=== PATIENT | male | born 1930 | race Hispanic/Latino ===

== ENCOUNTER 2019-01-09 14:17 | Inpatient (IN) | payer MEDICAID, SELFPAY ==
[2019-01-09] MEDS ORDERED: NITROGLYCERIN 1 GM PKT TD ONE (14:43)
[2019-01-09] MEDS ORDERED: FUROSEMIDE 40 MG/4 ML VIAL ONE (14:44)
[2019-01-09 15:16] LABS: Absolute Lymphocytes (CBC) 1.2 K/uL (0.7-4.9); Basophils % 1.4 % (0-1.3); Hematocrit 32.6 % (39.6-49.0); Lymphocytes % 17.8 % (15.3-44.8); MPV 10.6 fL (7.6-11.3); RBC Red Blood Cell Count 3.38 M/uL (4.33-5.43)
[2019-01-09 15:40] LABS: Potassium 4.8 mmol/L (3.5-5.1); Troponin (Emerg Dept Use Only) 0.06 ng/mL (0.0-0.045)
--- NOTE | 2019-01-09 15:46 | RAD REPORT ---
EXAM DESCRIPTION: RAD - Chest Single View - 01/09/2019 3:40 pm CLINICAL HISTORY: DYSPNEA Chest pain. COMPARISON: <Comparisons> FINDINGS: Portable technique limits examination quality. Small bilateral pleural effusions are suspected with mild pulmonary edema. The heart is significantly prominent in size. No displaced fractures.Aortic atherosclerosis. IMPRESSION: Mild CHF versus volume overload pattern.
--- NOTE | 2019-01-09 16:13 | EDPHYS ---
Physician Documentation [facility] Name: Beronica Reyes Age: 88 yrs Sex: Male : 1930 Arrival Date: 01/09/2019 Time: 14:20 Bed 19 Private MD: Unknown, Unknown ED Physician Anthony Hoang HPI: 01/09 15:06 This 88 yrs old Male presents to ER via Ambulatory with complaints of rn Breathing Difficulty, Chest Congestion. 15:06 The patient has shortness of breath at rest, with light activity. Onset: The rn symptoms/episode began/occurred at an unknown time. The patient's shortness of breath is aggravated by exertion, light activity, supine position, talking, walking. Severity of symptoms: At their worst the symptoms were moderate in the emergency department the symptoms are unchanged. The patient has experienced similar episodes in the past. Reports dyspnea on exertion, dry cough, no fever, + swelling of legs, most of care in [place], and only takes diuretics as needed. Reports chest pain as well. . Historical: - Allergies: 14:28 No Known Allergies; aj1 - Home Meds: 14:28 blood pressure medicine [Active]; aj1 - PMHx: 14:28 Hypertension; aj1 - Immunization history:: Flu vaccine is not up to date. - Social history:: Smoking status: Patient/guardian denies using tobacco. - Ebola Screening: : Patient denies travel to an Ebola-affected area in the 21 days before illness onset. - Family history:: not pertinent. - Hospitalizations: : No recent hospitalization is reported. ROS: 15:06 Constitutional: Negative for fever, chills, and weight loss, Eyes: Negative for injury, rn pain, redness, and discharge, ENT: Negative for injury, pain, and discharge, Neck: Negative for injury, pain, and swelling, Cardiovascular: Negative for chest pain, palpitations, + edema Respiratory: + sob and cough Abdomen/GI: Negative for abdominal pain, nausea, vomiting, diarrhea, and constipation, MS/Extremity: Negative for injury and deformity, Skin: Negative for injury, rash, and discoloration, Neuro: Negative for headache, weakness, numbness, tingling, and seizure. Exam: 15:06 Constitutional: This is a well developed, well nourished patient who is awake, alert, rn moderate respiratory distress Head/Face: Normocephalic, atraumatic. Eyes: Pupils equal round and reactive to light, extra-ocular motions intact. Lids and lashes normal. Conjunctiva and sclera are non-icteric and not injected. Cornea within normal limits. Periorbital areas with no swelling, redness, or edema. Cardiovascular: Regular rate and rhythm. No pulse deficits. Respiratory: Diminished bilateral bases, no wheezing or retractions. Abdomen/GI: soft, non-tender MS/ Extremity: 2+ pitting edema bilateral lower ext Neuro: Awake and alert, GCS 15, oriented to person, place, time, and situation. Cranial nerves II-XII grossly intact. Motor strength 5/5 in all extremities. Sensory grossly intact. Vital Signs: 14:28 BP 205 / 127; Pulse 78; Resp 18; Temp 97.6; Pulse Ox 98% on R/A; aj1 14:50 BP 183 / 103 LA Sitting (auto/reg); Pulse 75; Resp 22; Pulse Ox 98% on R/A; jp3 15:17 BP 192 / 125; Pulse 71; Resp 30; Pulse Ox 99% ; em 15:51 BP 190 / 103; Pulse 62; Resp 28; Pulse Ox 100% on R/A; Pain 0/10; em 16:15 BP 176 / 123; Pulse 67; Resp 28; Pulse Ox 9% on 21% BiPAP; Pain 0/10; em 16:47 BP 191 / 111; Pulse 68; Resp 20; Pulse Ox 99% on 21% BiPAP; em 17:25 BP 187 / 96; Pulse 62; Resp 24; Pulse Ox 100% on 21% BiPAP; Pain 0/10; em 18:00 BP 190 / 100; Pulse 71; Resp 26; Pulse Ox 99% on R/A; em 18:15 BP 175 / 78; Pulse 71; Resp 22; Pulse Ox 99% on R/A; Pain 0/10; em 18:35 BP 198 / 91; Pulse 69; Resp 24; Pulse Ox 98% on R/A; Pain 0/10; em 19:43 BP 207 / 108; Pulse 75; Resp 20; Temp 97.9; Pulse Ox 99% ; rr5 19:55 BP 195 / 120; Pulse 82; Resp 21; Pulse Ox 99% ; rr5 20:00 BP 190 / 120 RA (man/); rr5 20:30 BP 189 / 105; Pulse 70; Resp 20; Pulse Ox 99% ; rr5 20:58 BP 189 / 103; Pulse 62; Resp 19; Pulse Ox 98% ; rr5 21:04 BP 180 / 108; Pulse 62; Resp 21; Temp 97.9; Pulse Ox 98% ; rr5 MDM: 14:31 Patient medically screened. rn 16:09 Differential diagnosis: CHF exacerbation, Myocardial Infarction pneumonia, Pneumothorax rn pulmonary edema. Data reviewed: vital signs, nurses notes, lab test result(s), EKG, radiologic studies, plain films, and as a result, I will admit patient. Counseling: I had a detailed discussion with the patient and/or guardian regarding: the historical points, exam findings, and any diagnostic results supporting the discharge/admit diagnosis, lab results, radiology results, the need for further work-up and treatment in the hospital. Response to treatment: the patient's symptoms have mildly improved after treatment, and as a result, I will admit patient. Admission orders: after a detailed discussion of the patient's condition and case, the admit orders are written by me. 01/09 14:39 Order name: Blood Culture Adult (2) 01/09 14:39 Order name: BMP; Complete Time: 15:51 rn 01/09 14:39 Order name: CBC with Diff; Complete Time: 15:47 01/09 14:39 Order name: NT PRO-BNP; Complete Time: 15:51 01/09 14:39 Order name: Troponin (emerg Dept Use Only); Complete Time: 15:51 rn 01/09 17:14 Order name: Urine Dipstick--Ancillary (enter results) eb 01/09 14:39 Order name: XRAY CXR (1 view); Complete Time: 15:47 rn 01/09 16:13 Order name: BIPAP rn 01/09 20:18 Order name: Urine Dipstick-Ancillary EDMS 01/09 14:39 Order name: EKG; Complete Time: 14:40 rn 01/09 14:39 Order name: Cardiac monitoring; Complete Time: 14:51 rn 01/09 14:39 Order name: EKG - Nurse/Tech; Complete Time: 14:51 rn 01/09 14:39 Order name: IV Saline Lock; Complete Time: 15:20 rn 01/09 14:39 Order name: Labs collected and sent; Complete Time: 15:20 rn 01/09 14:39 Order name: O2 Per Protocol; Complete Time: 14:51 rn 01/09 14:39 Order name: O2 Sat Monitoring; Complete Time: 14:51 rn Administered Medications: 14:55 Drug: Lasix 40 mg Route: IVP; Site: right forearm; ss 16:30 Follow up: Response: No adverse reaction em 15:00 Drug: Nitro-Bid Ointment 2 % 1 inches Route: Transdermal; Site: anterior chest wall; em 16:30 Follow up: Response: No adverse reaction; Blood pressure is unchanged em 16:25 Drug: Nitroglycerin 0.4 mg Route: Sublingual; em 16:52 Follow up: Response: No adverse reaction; Blood pressure is lowered em 17:06 Drug: hydrALAZINE 10 mg Route: IV; Rate: calculated rate; Site: right forearm; ss 17:40 Follow up: Response: No adverse reaction; Blood pressure is lowered ss 17:40 Follow up: Response: No adverse reaction ss 19:00 Follow up: Response: No adverse reaction; IV Status: Completed infusion rr5 18:02 Drug: hydrALAZINE 10 mg Route: IV; Rate: calculated rate; Site: right forearm; ss 19:00 Follow up: IV Status: Completed infusion rr5 19:14 Drug: cloNIDine 0.1 mg {Note: bp 199/94.} Route: PO; rr5 20:15 Follow up: Response: No adverse reaction rr5 20:28 Drug: Metoprolol 50 mg {Note: bp 190/120.} Route: PO; rr5 21:13 Follow up: Response: No adverse reaction rr5 21:10 Drug: Losartan 50 mg Route: PO; rr5 21:13 Follow up: Response: Other; given upon admission. rr5 Disposition: 01/09/19 16:12 Hospitalization ordered by Fidelia Prakash for Inpatient Admission. Preliminary diagnosis are Dyspnea, unspecified, Unspecified combined systolic (congestive) and diastolic (congestive) heart failure, Chest pain, unspecified. - Bed requested for Telemetry/MedSurg (Inpatient). - Status is Inpatient Admission. rr5 - Condition is Stable. - Problem is new. - Symptoms have improved. UTI on Admission? No Signatures: Dispatcher [employer] EDPretty Castillo RN RN aj1 Juan Luis Alex, AG EQUIPMENT FIELD SERVICE TECHNICIAN AG EQUIPMENT FIELD SERVICE TECHNICIAN em Anthony Hoang MD MD rn Smirch, Shelby, PAM RN ss Laith Alves, RN RN ja1 Madi Cardenas, PAM RN rr5 Corrections: (The following items were deleted from the chart) 16:55 16:12 Hospitalization Ordered by Fidelia Prakash MD for Inpatient Admission. Preliminary ja1 diagnosis is Dyspnea, unspecified; Unspecified combined systolic (congestive) and diastolic (congestive) heart failure; Chest pain, unspecified. Bed requested for Telemetry/MedSurg (Inpatient). Status is Inpatient Admission. Condition is Stable. Problem is new. Symptoms have improved. UTI on Admission? No. rn 21:29 16:55 01/09/2019 16:12 Hospitalization Ordered by Fidelia Prakash MD for Inpatient rr5 Admission. Preliminary diagnosis is Dyspnea, unspecified; Unspecified combined systolic (congestive) and diastolic (congestive) heart failure; Chest pain, unspecified. Bed requested for Telemetry/MedSurg (Inpatient). Status is Inpatient Admission. Condition is Stable. Problem is new. Symptoms have improved. UTI on Admission? No. ja1
--- NOTE | 2019-01-09 16:13 | ER ---
Nurse's Notes [facility] Name: Beronica Reyes Age: 88 yrs Sex: Male : 1930 Arrival Date: 01/09/2019 Time: 14:20 Bed 19 Private MD: Unknown, Unknown Diagnosis: Dyspnea, unspecified;Unspecified combined systolic (congestive) and diastolic (congestive) heart failure;Chest pain, unspecified Presentation: 01/09 14:25 Presenting complaint: states: shortness of breath for the past 3 days. Reports aj1 productive cough ,denies fever. Patient also reports chest pain. Transition of care: patient was not received from another setting of care. Onset of symptoms was January 2019. Risk Assessment: Do you want to hurt yourself or someone else? Patient reports no desire to harm self or others. Initial Sepsis Screen: Does the patient meet any 2 criteria? No. Patient's initial sepsis screen is negative. Does the patient have a suspected source of infection? No. Patient's initial sepsis screen is negative. Care prior to arrival: None. 14:25 Method Of Arrival: Ambulatory aj1 14:25 Acuity: SALO 2 aj1 Triage Assessment: 14:28 General: Appears in no apparent distress. comfortable, Behavior is calm, cooperative, aj1 appropriate for age. Pain: Complains of pain in chest. Neuro: Level of Consciousness is awake, alert, obeys commands, Oriented to person, place, time, situation. Cardiovascular: Patient's skin is warm and dry. Respiratory: Reports shortness of breath at rest Airway is patent Respiratory effort is even, unlabored, Respiratory pattern is regular, symmetrical, Onset: The symptoms/episode began/occurred 3 days ago, the patient has moderate shortness of breath. Historical: - Allergies: 14:28 No Known Allergies; aj1 - Home Meds: 14:28 blood pressure medicine [Active]; aj1 - PMHx: 14:28 Hypertension; aj1 - Immunization history:: Flu vaccine is not up to date. - Social history:: Smoking status: Patient/guardian denies using tobacco. - Ebola Screening: : Patient denies travel to an Ebola-affected area in the 21 days before illness onset. - Family history:: not pertinent. - Hospitalizations: : No recent hospitalization is reported. Screenin:45 Abuse screen: Denies threats or abuse. Nutritional screening: No deficits noted. em Tuberculosis screening: No symptoms or risk factors identified. Fall Risk None identified. Assessment: 14:45 General: Appears uncomfortable, Behavior is cooperative, Denies fever. Pain: Complains em of pain in chest. Neuro: Level of Consciousness is awake, alert, obeys commands, Oriented to person, place, time, situation, Appropriate for age. Cardiovascular: Reports chest pain, shortness of breath, Heart tones S1 S2 present Capillary refill < 3 seconds Patient's skin is warm and dry. Rhythm is sinus rhythm. Respiratory: Airway is patent Respiratory effort is even, unlabored, Respiratory pattern is regular, symmetrical, Breath sounds are clear bilaterally. Derm: Skin is intact, is healthy with good turgor, Skin is pink, warm \T\ dry. Musculoskeletal: Capillary refill < 3 seconds, Range of motion: intact in all extremities. 14:50 General: The previous assessment is accurate, call light remains within reach. ss 15:46 Reassessment: Patient appears in no apparent distress at this time. Patient and/or em family updated on plan of care and expected duration. Pain level reassessed. reports chest pain is gone, BP still elevated, will continue to monitor Patient denies pain at this time. Patient states feeling better. Patient states symptoms have improved. 16:20 Reassessment: Patient appears in no apparent distress at this time. Patient and/or em family updated on plan of care and expected duration. Pain level reassessed. RT at bedside, placed on BIPAP on 21% O2. 16:56 Reassessment: Dr. Prakash at bedside, received verbal order for hydralazine 10 mg IVP x 1.em 17:26 Reassessment: Patient appears in no apparent distress at this time. Patient and/or em family updated on plan of care and expected duration. Pain level reassessed. BP improved, will continue to monitor. 17:46 Reassessment: spoke with Dr. Prakash over phone, pt reports BIPAP making him feel like he em can't breathe, received order to D/C BIPAP, also reported VS to Dr. Prakash, received new verbal orders, hydralazine 10 mg IVP x 1. 18:35 Reassessment: Patient appears in no apparent distress at this time. Patient and/or em family updated on plan of care and expected duration. Pain level reassessed. Patient denies pain at this time. Patient states feeling better. 18:45 Reassessment: ambulated to restroom, reports BM, tolerated well. em 19:04 Reassessment: Dr. Prakash at bedside, given verbal order for clonidine 0.1 mg PO x 1. em 19:33 General: Appears in no apparent distress. comfortable, Behavior is calm, cooperative, rr5 appropriate for age. Pain: Denies pain. Neuro: Level of Consciousness is awake, alert, obeys commands, Oriented to person, place, time. Cardiovascular: Capillary refill < 3 seconds Patient's skin is warm and dry. Respiratory: Airway is patent Respiratory effort is even, unlabored, Respiratory pattern is regular, symmetrical. GI: No signs and/or symptoms were reported involving the gastrointestinal system. : No signs and/or symptoms were reported regarding the genitourinary system. EENT: No signs and/or symptoms were reported regarding the EENT system. Derm: Skin is intact, Skin is pink, warm \T\ dry. Musculoskeletal: Circulation, motion, and sensation intact. Capillary refill < 3 seconds. 19:33 Musculoskeletal: Swelling present in right leg and left leg. rr5 19:55 Reassessment: informed dr. phelps thru voice mail box for the BP of 195/120mmHg. rr5 20:00 Reassessment: dr. phelps responded thru phone with order made to do manual BP. BP is rr5 190/120 (manual) with telephone order of metoprolol 50 mg tablet now. then check the BP again after. BP parameters must be systolic BP 180 and below. 21:05 Reassessment: Patient appears in no apparent distress at this time. Patient and/or rr5 family updated on plan of care and expected duration. Pain level reassessed. Patient is alert, oriented x 3, equal unlabored respirations, skin warm/dry/pink. dr phelps came assess the patient and with order made to give losartan 50mg tablet now. patient can go up. Vital Signs: 14:28 BP 205 / 127; Pulse 78; Resp 18; Temp 97.6; Pulse Ox 98% on R/A; aj1 14:50 BP 183 / 103 LA Sitting (auto/reg); Pulse 75; Resp 22; Pulse Ox 98% on R/A; jp3 15:17 BP 192 / 125; Pulse 71; Resp 30; Pulse Ox 99% ; em 15:51 BP 190 / 103; Pulse 62; Resp 28; Pulse Ox 100% on R/A; Pain 0/10; em 16:15 BP 176 / 123; Pulse 67; Resp 28; Pulse Ox 9% on 21% BiPAP; Pain 0/10; em 16:47 BP 191 / 111; Pulse 68; Resp 20; Pulse Ox 99% on 21% BiPAP; em 17:25 BP 187 / 96; Pulse 62; Resp 24; Pulse Ox 100% on 21% BiPAP; Pain 0/10; em 18:00 BP 190 / 100; Pulse 71; Resp 26; Pulse Ox 99% on R/A; em 18:15 BP 175 / 78; Pulse 71; Resp 22; Pulse Ox 99% on R/A; Pain 0/10; em 18:35 BP 198 / 91; Pulse 69; Resp 24; Pulse Ox 98% on R/A; Pain 0/10; em 19:43 BP 207 / 108; Pulse 75; Resp 20; Temp 97.9; Pulse Ox 99% ; rr5 19:55 BP 195 / 120; Pulse 82; Resp 21; Pulse Ox 99% ; rr5 20:00 BP 190 / 120 RA (man/); rr5 20:30 BP 189 / 105; Pulse 70; Resp 20; Pulse Ox 99% ; rr5 20:58 BP 189 / 103; Pulse 62; Resp 19; Pulse Ox 98% ; rr5 21:04 BP 180 / 108; Pulse 62; Resp 21; Temp 97.9; Pulse Ox 98% ; rr5 ED Course: 14:20 Patient arrived in ED. ag5 14:21 Unknown, Unknown is Private Physician. ag5 14:27 Triage completed. aj1 14:28 Arm band placed on Patient placed in an exam room. aj1 14:31 Anthony Hoang MD is Attending Physician. rn 14:34 Juan Luis Alex LVN is Primary Nurse. em 14:49 EKG done, by ED staff, reviewed by Anthony Hoang MD. Patient maintains SpO2 saturation jp3 greater than 95% on room air. 14:50 Placed in gown. Bed in low position. Call light in reach. Side rails up X 1. Warm jp3 blanket given. Verbal reassurance given. monitoring tech on. Pulse ox on. NIBP on. 15:00 Inserted saline lock: 20 gauge in right forearm, using aseptic technique. Blood em collected. 15:00 Initial lab(s) drawn, by me, sent to lab. First set of blood cultures drawn by me. em 15:41 XRAY CXR (1 view) In Process Unspecified. EDMS 16:11 Fidelia Prakash MD is Hospitalizing Provider. rn 17:10 Urine collected: clean catch specimen, clear. em 21:08 No provider procedures requiring assistance completed. Patient admitted, IV remains in rr5 place. intact, No redness/swelling at site. Administered Medications: 14:55 Drug: Lasix 40 mg Route: IVP; Site: right forearm; ss 16:30 Follow up: Response: No adverse reaction em 15:00 Drug: Nitro-Bid Ointment 2 % 1 inches Route: Transdermal; Site: anterior chest wall; em 16:30 Follow up: Response: No adverse reaction; Blood pressure is unchanged em 16:25 Drug: Nitroglycerin 0.4 mg Route: Sublingual; em 16:52 Follow up: Response: No adverse reaction; Blood pressure is lowered em 17:06 Drug: hydrALAZINE 10 mg Route: IV; Rate: calculated rate; Site: right forearm; ss 17:40 Follow up: Response: No adverse reaction; Blood pressure is lowered ss 17:40 Follow up: Response: No adverse reaction ss 19:00 Follow up: Response: No adverse reaction; IV Status: Completed infusion rr5 18:02 Drug: hydrALAZINE 10 mg Route: IV; Rate: calculated rate; Site: right forearm; ss 19:00 Follow up: IV Status: Completed infusion rr5 19:14 Drug: cloNIDine 0.1 mg {Note: bp 199/94.} Route: PO; rr5 20:15 Follow up: Response: No adverse reaction rr5 20:28 Drug: Metoprolol 50 mg {Note: bp 190/120.} Route: PO; rr5 21:13 Follow up: Response: No adverse reaction rr5 21:10 Drug: Losartan 50 mg Route: PO; rr5 21:13 Follow up: Response: Other; given upon admission. rr5 Intake: Outcome: 16:12 Decision to Hospitalize by Provider. rn 21:08 Admitted to Tele accompanied by tech, via stretcher, room 404, with chart, Report rr5 called to hernan 21:08 Condition: stable 21:08 Instructed on the need for admit. 21:29 Patient left the ED. rr5 Signatures: Dispatcher [employer] Pretty Peguero, RN RN aj1 Juan Luis Alex, FACILITY SECURITY OFFICER FACILITY SECURITY OFFICER em Anthony Hoang MD MD rn Smirch, Shelby, RN RN ss Pisarski, Jacob jp3 Madi Cardenas RN RN rr5 Ginna Cotton ag5 Corrections: (The following items were deleted from the chart) 14:30 14:25 Acuity: SALO 3 aj1 aj1 18:59 16:47 BP 191 / 111; Pulse 68bpm; Resp 20bpm; Pulse Ox 99% RA; em em
[2019-01-09] MEDS ORDERED: NITROGLYCERIN 0.4 MG/TAB SL ONE (16:19)
[2019-01-09] MEDS ORDERED: HYDRALAZINE HCL 20 MG/ML VIAL ONE (17:00)
--- NOTE | 2019-01-09 17:38 | EKG ---
Test Date: 2019-01-09 Test Time: 14:46:18 [employer]: TREMAYNE MEASUREMENT RESULTS: Intervals: Rate: 76 [place]: 194 QRSD: 102 QT: 440 QTc: 495 [place]: P: 34 [place]: 194 QRS: -54 T: 55 INTERPRETIVE STATEMENTS: Normal sinus rhythm Incomplete right bundle branch block Left anterior fascicular block Septal infarct, age undetermined Abnormal ECG No previous ECG available for comparison Electronically Signed On 01-09-19 17:38:32 CDT by Montez Sarmiento
[2019-01-09] MEDS ORDERED: cloNIDine HCl 0.1 MG TAB ONE (19:07)
[2019-01-09 20:17] LABS: Urine Blood TRACE (NEG); Urine Glucose NEGATIVE (NEG); Urine Protein 3+ (NEG); Urine pH 5.5 (5.0-7.0)
[2019-01-09] MEDS ORDERED: METOPROLOL TAR 50 MG TAB ONE (20:21)
[2019-01-09] MEDS ORDERED: ONDANSETRON 4 MG/2 ML VIAL IV PRN (21:54)
[2019-01-09] MEDS ORDERED: ACETAMINOPHEN 500 MG TAB PO PRN (21:54)
[2019-01-09] MEDS: FUROSEMIDE 40 MG/4 ML VIAL IV SCH (22:03)
[2019-01-09] MEDS: METOPROLOL TAR 50 MG TAB PO SCH (22:04)
[2019-01-09 22:24] VITALS: BMI 27.1
--- NOTE | 2019-01-09 23:08 | HP ---
Date of Admission: 01/09/2019 Chief Complaint: Shortness of breath. Primary Care Physician: Out of town. Consultants: Dr. Sarmiento with Cardiology. Code status: Full History Of Present Illness: Patient is an 88-year-old male with past medical history of hypertension, coronary artery disease, benign prostatic hyperplasia, congestive heart failure, unknown ejection fraction who resides in [place], was in his usual state of health until several days prior to admission when the patient started having gradual worsening of shortness of breath. Patient does have baseline edema, is not on oxygen at home. Patient has been compliant with his medications. On the day of admission, his shortness of breath was severe. He was unable to ambulate without getting dyspneic, therefore was brought into the ER. His symptoms were constant, moderate, progressively worsening. Patient did complain of some chest tightness. There was no nausea, vomiting, cough, fever, ill contacts, or sputum production. In the ER, his vital signs showed a blood pressure of 205/127, his O2 saturations were 98% on room air. He was given nitro paste and 40 mg of IV Lasix. His workup revealed BNP of 72, 000, creatinine was 3.61. White blood cell count was normal. Chest x-ray showed mild CHF versus volume overload pattern and small bilateral pleural effusions. Patient was then referred for admission. He was placed on BiPAP. When seen in the ER, he was awake, alert, oriented x3, in some mild respiratory distress. Past Medical History: Essential hypertension, coronary artery disease, history of [place], benign prostatic hyperplasia, apparent history of chronic kidney disease , CHF, and anemia. Surgical History: None. Allergies: NO KNOWN DRUG ALLERGIES. Medications: Patient takes losartan, Tylenol, and water pills. We will go over rest of the medications when family is able to provide them. Social History: Patient does not smoke or drink. No illicit drug use. Patient does need some assistance with his activities of daily living. Family History: Diabetes and hypertension run in the sisters. Review of Systems: Ten-point system reviewed and negative, except as per HPI. Physical Examination: Vital Signs: Blood pressure 205/127, pulse 78, respirations 18, temperature 97.6, O2 98% on room air. GENERAL: Awake, alert, oriented x3, in some mild respiratory distress. Elderly male, ill appearing. HEENT: Normocephalic, atraumatic. PERRL, EOMI. Moist mucous membranes. Oropharynx is clear. Poor dentition. Conjunctivae anicteric. Neck: Supple. Trachea midline. CV: S1, S2. Regular rate and rhythm. Peripheral pulses are weak bilaterally. RESPIRATORY: Diminished breath sounds at the bases. Crackles heard throughout. No wheezing or stridor. Patient is slightly tachypneic. Gastrointestinal: Abdomen is soft, nontender, nondistended. Positive bowel sounds. No guarding or rigidity. Extremities: No clubbing or cyanosis. Patient has diffuse peripheral edema, 3 + up to the knees bilaterally. No calf tenderness. Neuro: Cranial nerves 2 through 12 intact grossly. No focal neurological deficits. Speech is normal. Strength is symmetric, but overall has generalized weakness. No facial asymmetry. Skin: No rashes. Normal skin turgor. Laboratory Data: WBC 6.8, H and H 11.4 and 32.6, platelets 164, neutrophils 70% . Sodium 141, potassium 4.8, chloride 110, CO2 18, BUN 56, creatinine 3.61, glucose 112, calcium 8.6, troponin 0.06. BNP 72,973. UA is pending. Imaging Studies: Chest x-ray shows mild CHF versus volume overload pattern, personally reviewed. Assessment: 88-year-old male with; 1. Hypertensive emergency with end-organ damage. Patient has pulmonary edema , elevated troponin level 0.06. Kidney function is elevated at 3.61. Patient received nitro paste in the ER and Lasix. We will add hydralazine use 10 mg p.r.n. for systolic greater than 160. We will try to bring the blood pressure down to the 180s to 160s and to avoid sudden drop. We will continue to monitor. If refractory to p.r.n. medications, may need nicardipine drip in the ICU setting. 2. Elevated troponin level likely secondary to above. We will obtain EKG and echocardiogram. 3. Acute congestive heart failure, unknown ejection fraction. We will continue with IV diuresis, CHF guidelines, hold TYE inhibitor due to elevated creatinine. We will consult Cardiology and obtain echocardiogram. 4. Acute versus acute on chronic kidney injury. Creatinine at 3.61, unknown baseline. We will consult Nephrology for further workup. We will continue to monitor patient's electrolytes including potassium and sodium are okay. We will check magnesium and phosphorus. 5. Coronary artery disease, [place] artery and [place] heart with angina. Patient does report some chest tightness improved with nitro paste. Patient has elevated troponin level. 6. Benign prostatic hyperplasia. 7. Normocytic, normochromic anemia. Patient has history and is on vitamins, so likely has B12 deficiency. We will monitor H and H, transfuse as needed. 8. Deep venous thrombosis prophylaxis with Lovenox. Plan: Admit patient to Med-Surg place as inpatient. Length of stay greater than 2 midnights. ZENAIDA Voice ID: [id number] MTDD
[2019-01-10 04:21] LABS: Absolute Lymphocytes (CBC) 0.9 K/uL (0.7-4.9); Basophils % 1.4 % (0-1.3); Hematocrit 32.6 % (39.6-49.0); Lymphocytes % 16.8 % (15.3-44.8); MPV 9.9 fL (7.6-11.3)
[2019-01-10 04:50] LABS: Albumin 3.2 g/dL (3.4-5.0); Bilirubin Total 0.9 mg/dL (0.2-1.0); Magnesium 1.8 mg/dL (1.8-2.4); Phosphorus 4.2 mg/dL (2.5-4.9); Potassium 4.5 mmol/L (3.5-5.1); Protein, Total 6.6 g/dL (6.4-8.2); Troponin I 0.05 ng/mL (0.0-0.045)
--- NOTE | 2019-01-10 08:36 | RAD REPORT ---
EXAM DESCRIPTION: RAD - Chest Pa And Lat (2 Views) - 01/10/2019 8:19 am CLINICAL HISTORY: CHF Chest pain. COMPARISON: Chest Single View dated 01/09/2019 FINDINGS: Little overall change is seen in the right basilar lung opacity with right pleural effusio n. Small left pleural effusion with mild linear opacities in the medial left lung base also appears u nchanged. The heart is significantly enlarged. No displaced fractures. IMPRESSION: Stable chest since 01/09/2019 study.
[2019-01-10] MEDS: FUROSEMIDE 40 MG/4 ML VIAL IV SCH ×2 (09:53→18:17)
[2019-01-10] MEDS: METOPROLOL TAR 50 MG TAB PO SCH ×2 (09:57→20:46)
[2019-01-10] MEDS: HYDRALAZINE HCL 20 MG/ML VIAL IV PRN (13:24)
[2019-01-10] MEDS: GUAIFENESIN/CODEINE 5ML UCUP PO PRN ×2 (13:25→20:47)
--- NOTE | 2019-01-10 15:51 | PN ---
Date of Progress Note: 01/10/2019 Subjective: Patient is seen and examined. Chart reviewed and case discussed with RN. Family at the bedside. Medication List: Reviewed. Physical Examination: Vital Signs: Temperature 97, heart rate 53, blood pressure 188/90, respirations 22, O2 of 100% on ro om air. GENERAL: Awake, alert, oriented x3. Elderly male, some mild distress. CV: S1, S2. Regular rate and rhythm. Peripheral pulses weak. Respiratory: Diminished breath sounds at the bases. Some crackles present. No wheezing. Gastrointestinal: Abdomen is soft, nontender, nondistended. Positive bowel sounds. Extremities: No clubbing or cyanosis. Patient has 2+ edema of the lower extremities, improving. Neurologic: Nonfocal. Cranial nerves 2 through 12 intact grossly. No focal neurological deficit. Speech is normal. Skin: No rashes. Normal skin turgor. Laboratory Data: WBC 5.6, H and H 11.5 and 32.6, platelets 140, neutrophils 71%. Sodium 139, potass ium 4.5, chloride 109, CO2 of 20, BUN 55, creatinine 3.58, glucose 101, calcium 8.4. Phosphorus 4.2, magnesium 1.8. Troponin 0.06, 0.05. UA is negative. Blood cultures pending. Chest x-ray shows st able chest, little overall change in the right basilar lung opacity with right pleural effusions, sma ll left pleural effusion with mild linear opacities in the medial left lung base, also appears unchan ged. Heart is significantly enlarged. No displaced fractures. Assessment: An 88-year-old male with: 1.Acute respiratory failure with hypoxia. Patient was on BiPAP initially, now on room air, improvin g secondary to congestive heart failure. 2.Hypertensive emergency with end-organ damage. Patient had pulmonary edema, elevated troponin leve l, and elevated kidney function, improving. Blood pressure is better. We will continue to adjust me dications to keep blood pressure in the 160s range to avoid rapid drop. 3.Elevated troponin level secondary to above. Echocardiogram pending. 4.Acute congestive heart failure, unknown ejection fraction. We will continue with IV diuretics. E princess is improved. Shortness of breath is also improved. Continue with congestive heart failure guid elines. No TYE inhibitor due to elevated kidney function. 5.Acute versus acute on chronic kidney injury. Creatinine is at 3 per family. Patient does have so me history of chronic kidney disease. Nephrology consulted. We will continue to monitor electrolyte s. 6.Coronary artery disease, [place] artery and [place] heart with angina, especially with coughing. Ec hocardiogram pending. May have pleural effusion. 7.Benign prostatic hypertrophy. UA is negative. We will continue with tamsulosin. 8.Normocytic normochromic anemia. Patient does have history of vitamin deficiency. Monitor H and H , transfuse as needed. 9.Deep venous thrombosis prophylaxis with Lovenox. Plan: Likely discharge in the next 24 to 48 hours depending on clinical response. Follow up on echo cardiogram. /RENETTA Voice ID: [id number] Report ID: [id number]
[2019-01-11] MEDS: HYDRALAZINE HCL 20 MG/ML VIAL IV PRN ×2 (00:02→16:29)
--- NOTE | 2019-01-11 02:31 | CON ---
Date of Consultation: 01/10/2019 Reason For Consultation: Elevated troponin, hypertension, and shortness of breath. History Of Present Illness: Mr. Reyes is an 88-year-old male, has no significant past medical hi story except for hypertension as far as we know. He came in with shortness of breath, was found to h ave a creatinine of 3.58. He was hypertensive at about 200/97. Chest x-ray showed mild congestive h eart failure. EKG showed bifascicular block. Troponin was 0.05 and 0.06, not consistent with acute coronary syndrome and he had a BNP of 72,973. include PND, orthopnea, pedal edema, and sh ortness of breath. No palpitations. No chest pain. No syncope. Past Medical History: As stated above. Allergies: NONE. Review of Systems: Negative. Social History: Negative. Medications At Home: Include losartan. Physical Examination: General: When I saw Mr. Reyes, he was in no acute distress. Vital Signs: Stable. He was afebrile. He was in sinus rhythm. HEENT: Negative. Neck: Supple without any bruit, lymphadenopathy, JVD, or thyromegaly. Chest: Reveals rales at both bases. Cardiac: Reveals a regular rhythm and rate with an S3 gallops. No murmurs or rubs. Abdomen: Benign. Extremities: Revealed no clubbing, cyanosis. He had 1+ edema. Neurologic: Nonfocal. Skin: Dry and intact. Pulses were present bilaterally. Diagnostic Data: Stated above. Impression And Plan: 1.Acute renal failure. 2.Acute, possibly systolic congestive heart failure. 3.Severe hypertension. 4.Elevated troponin secondary to hypertension and renal failure. 5.Elevated BNP consistent with congestive heart failure. 6.Abnormal EKG. Mr. Reyes is obviously definitely not a candidate for cardiac catheterization right now. I would be more concerned about his renal status. We will await renal consultation. I agree with a 2D echo cardiogram. We will decide on further medical therapy after the echocardiogram is done and depending what his creatinine does. JULITO/EUGENIOL Voice ID: [id number] Report ID: [id number]
--- NOTE | 2019-01-11 04:23 | CON ---
Date of Consultation: 01/10/2019 Chief Complaint: Acute on chronic kidney injury, nonoliguric, accelerated hypertension. History Of Present Illness: The patient was brought to the hospital because of generalized weakness. He was found to have elevated BUN and creatinine. Renal function has not improved over the last 24 hours. BUN is 55, creatinine 3.58. Electrolytes are as follows; sodium 139, potassium 4.5, chloride 109, CO2 of 20 , calcium 8.4. BNP was 72,973. Troponin level 0.05. The patient is a poor historian. He has history of chronic kidney disease. According to his family, he was seen by a senior director creative services in [place] for chronic kidney disease and was treated conservatively with medication. He developed shortness of breath and leg edema and started on IV Lasix, received medication for blood pressure control and chest pain control. He denied nausea, vomiting, cough, fever: Denies sputum production. In the emergency room, blood pressure was 205/127. Saturation was 98%. His creatinine was 3.61. Chest x-ray showed mild congestive heart failure versus overload pattern with bilateral pleural effusion. The patient was awake, alert, oriented x3, although he does not speak [place] and remains slightly confused. Review of Systems: Unobtainable. Past Medical History: Essential hypertension; coronary artery disease; history of myocardial infarction; benign prostatic hyperplasia; history of chronic kidney, stage unspecified; congestive heart failure with diastolic dysfunction; anemia, chronic; Medications: He takes losartan, Tylenol. Denies nonsteroidal antiinflammatory medications. Social History: Denies tobacco, alcohol, or illicit drugs. Family History: Diabetes mellitus and hypertension in his siblings. Physical Examination: Vital signs: heart rate 78, temperature 97.6. Eyes: Anicteric sclerae. EOMI. Ears, Nose, Mouth, and Throat: Oral mucosa moist. No pallor. Neck: Supple. No bruits. Lungs: Clear to auscultation bilaterally. No rhonchi. No wheezing. Heart: S1, S2. No pericardial friction rub. Abdomen: Soft, benign, nontender. Extremities: No clubbing, no cyanosis. 3+ edema in both ankles. Skin: Warm and dry. No skin rashes. Neurologic: Moving extremities. Cranial nerves intact. Psychiatric: Patient has normal affect. Follows commands. Laboratory Data: WBC 6.8, hemoglobin 11.4, hematocrit 32.6, platelet count was 164,000. Sodium 141, potassium 4.8, chloride 110, CO2 of 18, glucose 112, calcium 8.6. Impression And Plan: Hypertensive emergency with history of end-organ damage, congestive heart failure, diastolic dysfunction, and coronary artery disease, as well as history of chronic kidney disease. The patient has pulmonary edema and troponin is elevated. The patient will have Lasix for volume control and IV hydralazine for hypertensive emergency. The patient will have workup to rule out renal artery stenosis and plan is to check workup for proteinuria to rule out monoclonal gammopathy of unknown significance. Congestive heart failure, unknown ejection fraction. The patient is undergoing workup for congestive heart failure. Hold TYE inhibitor due to elevated creatinine and risk of hyperkalemia. Avoid nephrotoxic medication. Acute on chronic kidney injury, likely the patient has underlying chronic kidney disease of advanced stage. History of benign prostatic hyperplasia. The patient denies lower urinary tract symptoms. Check kidney ultrasound to rule out urinary retention. JOSE DANIEL/RENETTA Voice ID: [id number] Report ID: [id number] [place]
[2019-01-11 04:44] LABS: Absolute Lymphocytes (CBC) 0.9 K/uL (0.7-4.9); Basophils % 0.9 % (0-1.3); Hematocrit 34.3 % (39.6-49.0); Lymphocytes % 13.6 % (15.3-44.8); MPV 10.5 fL (7.6-11.3); RBC Red Blood Cell Count 3.55 M/uL (4.33-5.43)
[2019-01-11 05:01] LABS: Albumin 3.3 g/dL (3.4-5.0); Bilirubin Total 0.9 mg/dL (0.2-1.0); Potassium 4.3 mmol/L (3.5-5.1); Protein, Total 6.5 g/dL (6.4-8.2)
[2019-01-11] MEDS: METOPROLOL TAR 50 MG TAB PO SCH (07:35)
[2019-01-11] MEDS: FUROSEMIDE 40 MG/4 ML VIAL IV SCH ×2 (07:35→16:29)
--- NOTE | 2019-01-11 07:56 | ECHO ---
HEIGHT: 5 ft 3 in WEIGHT: 153 lb 6.4 oz DATE OF STUDY: 01/10/[address]: Fidelia Prakash MD 2-DIMENSIONAL: YES M.MODE: YES DOPPLER: YES COLOR FLOW: YES TDS: NO PORTABLE: NO DEFINITY: NO BUBBLE STUDY: NO DIAGNOSIS: CONGESTIVE HEART FAILURE CARDIAC HISTORY: CATHERIZATION: SURGERY: PROSTHETIC VALVE: PACEMAKER: MEASUREMENTS (cm) DIASTOLIC (NORMALS) SYSTOLIC (NORMALS) IVSd 1.3 (0.6-1.2) LA Diam 5.4 (1.9-4.0) LVEF 57% LVIDd 5.2 (3.5-5.7) LVIDs 3.6 (2.0-3.5) %FS 30% LVPWd 1.4 (0.6-1.2) Ao Diam 3.4 (2.0-3.7) 2 DIMENSIONAL ASSESSMENT: RIGHT ATRIUM: NORMAL LEFT ATRIUM: DILATED RIGHT VENTRICLE: NORMAL LEFT VENTRICLE: LEFT VENTRICULAR HYPERTROPHY TRICUSPID VALVE: NORMAL MITRAL VALVE: NORMAL PULMONIC VALVE: NORAML AORTIC VALVE: NORMAL PERICARDIAL EFFUSION: NONE AORTIC ROOT: NORMAL LEFT VENTRICULAR WALL MOTION: DECREASED LEFT VENTRICULAR COMPLIANCE. DOPPLER/COLOR FLOW: MILD MITRAL AND TRICUSPID REGURGITATION. COMMENTS: LEFT VENTRICULAR HYPERTROPHY. NORMAL LEFT VENTRICULAR EJECTION FRACTION. DECREASED LEFT VENTRICULAR COMPLIANCE. LEFT ATRIAL ENLARGEMENT. MILD MITRAL AND TRICUSPID REGURGITATION. TECHNOLOGIST: Mireya BOYD
[2019-01-11] MEDS ORDERED: AMLODIPINE 2.5 MG TAB PO SCH (09:00)
[2019-01-11] MEDS ORDERED: VITAMIN B COMPLEX 1 CAP PO SCH (09:00)
[2019-01-11 11:50] VITALS: O2SAT 99
--- NOTE | 2019-01-11 12:01 | RAD REPORT ---
EXAM DESCRIPTION: US - Abdomen Pelvis Scan US - 01/11/2019 11:05 am CLINICAL HISTORY: Hypertension COMPARISON: None TECHNIQUE: Sonographic evaluation of the kidneys was performed with measurements obtained and gross anatomic assessment performed. Doppler evaluation of the renal arteries, interlobar arteries and aort a attempted. Waveforms and velocities were recorded. The renal artery ratio and resistive index juany ues calculated. Exam was performed with the patient nonfasting. FINDINGS: Right pleural effusion is present only partially imaged on this study. Right kidney is 9.0 x 4.6 x 4.6 cm. Left kidney is 8.8 x 5.0 x 3.7 cm. Cortical thickness and echogen icity are normal. No hydronephrosis seen. A 2.6 centimeter cyst is present lower pole of the right ki dney. A 2.5 centimeter cyst is present lateral upper pole left kidney. Both kidneys show increased cortical echogenicity consistent with underlying medical renal disease. Prominent bowel gas pattern is present. Left renal artery could not be visualized. Right renal artery ratio was normal at 0.6 value. Right renal artery resistive index value of 0.80 ob tained. Interlobar artery assessment could be performed for both kidneys. Resistive index value on the right was 0.63 with a 0.60 resistive index value on the left. IMPRESSION: Right-sided renal artery ratio was normal. Left renal artery could not be visualized. Artery was obscured by prominent bowel gas and body habitu s affects. The right-side resistive index values and bilateral interlobar resistive index values not seen as mercedes picious.
[2019-01-11 16:07] VITALS: TEMP 97.5
[2019-01-11 17:20] LABS: Urine Protein/Creatinine Ratio 2.78 ratio (<0.15)
[2019-01-11 17:32] VITALS: BP 112/65
--- NOTE | 2019-01-11 17:48 | PN ---
Subjective: Mr. Reyes was admitted with shortness of breath, pulmonary edema, acute renal failur e. Creatinine is almost 4. Renal consultation has been obtained. Echocardiography did not show any significant wall motion abnormalities. I would continue his medical therapy. Continue recommendati ons as per Nephrology. We will see him as an outpatient. JULITO/RENETTA Voice ID: [id number] Report ID: [id number]
--- NOTE | 2019-01-11 18:27 | PN ---
Date of Progress Note: 01/11/2019 Subjective: Patient was admitted with hypertension. Primary workup treated as urgent hypertension. Apparently, patient found to have elevated BUN and creatinine. For that reason, we have been consul [place]. Patient apparently seeing a resident care aid in [place] and knows about advanced kidney disease terrell ko seeing regularly. Physical Examination: Vital Signs: Today, blood pressure 156/71, pulse of 54. Chest: Clear to auscultation. Heart: S1, S2. Regular. Abdomen: Soft, nontender. Extremities: No edema. Neurologic: Alert. No focal. No tremor. Laboratory Data: WBC 6.4, H and H 11.9/34.3, platelets 151. Sodium 141, potassium 4.3, bicarb 23, B UN 64, creatinine 4, GFR of 14, calcium 8.8. SPEP pending. Serology was negative. PC ratio +3. Medications: Current medications the patient on, its include amlodipine, hydralazine, metoprolol, La six, Zofran, B complex. 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 No hyperkalemia. No acidosis. No uremic symptoms. Patient do es not need renal replacement therapy currently, but eventually he is going to need. Patient is nicki ko to follow up with his primary resident care aid. 2.Hypertension, currently controlled. Continue current medication. I am going to go ahead and incr ease amlodipine to 10 mg for better blood pressure control. 3.Anemia of chronic kidney disease, stable. No need for MARY. 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 Will follow up with primary. Workup is still pending. TATY Voice ID: [id number] Report ID: [id number]
[2019-01-12] MEDS ORDERED: AMLODIPINE 10 MG TAB PO SCH (09:00)
--- NOTE | 2019-01-12 18:00 | P.DS ---
Admission Date: 01/09/19 Discharge Date: 01/11/19 Disposition: ROUTINE DISCHARGE Discharge Condition: FAIR Reason for Admission: Shortness of breath Consultations: Cardiology Nephrology Brief History of Present Illness: Patient is an 88-year-old male with past medical history of hypertension, coronary artery disease, benign prostatic hyperplasia, congestive heart failure , unknown ejection fraction who resides in [place], was in his usual state of health until several days prior to admission when the patient started having gradual worsening of shortness of breath. Patient does have baseline edema, is not on oxygen at home. Patient has been compliant with his medications. On the day of admission, his shortness of breath was severe. He was unable to ambulate without getting dyspneic, therefore was brought into the ER. His symptoms were constant, moderate, progressively worsening. Patient did complain of some chest tightness. There was no nausea, vomiting, cough, fever, ill contacts, or sputum production. In the ER, his vital signs showed a blood pressure of 205/127, his O2 saturations were 98% on room air. He was given nitro paste and 40 mg of IV Lasix. His workup revealed BNP of 72,000, creatinine was 3.61. White blood cell count was normal. Chest x-ray showed mild CHF versus volume overload pattern and small bilateral pleural effusions. Patient was then referred for admission. He was placed on BiPAP. When seen in the ER, he was awake, alert, oriented x3, in some mild respiratory distress. Hospital Course: Patient was admitted for shortness of breath And hypertensive emergency with an organ damage. He seemed to have pulmonary edema, elevated troponin 2 was 0.06, kidney function elevation of 3.61. He received IV blood pressure medications to help control is blood pressure. He was also found to be in acute respiratory failure with hypoxia. He was placed on BiPAP initially, and he was weaned off slowly wean as tolerated. An echocardiogram was done, which showed dilated heart failure with left ventricular hypertrophy and ejection fraction of 57%. Cardiology and nephrology were consulted. Per cardiology, no further cardiac workup at this time. 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 He has a primary lead slot technician and [place]. No emergent began therapy recommended at this time. He was then cleared for discharge by both cardiology and nephrology. His symptoms slowly improved and he returned to baseline. Prior to discharge, he was alert oriented x3, in no acute distress, tolerating an oral diet, ambulating without any concerns. Patient otherwise remained stable throughout the stay. His diagnoses/treatment plan was explained to him and at bedside with a top frame fitter. All questions were answered and they verbalized understanding. He was then discharged home in a safe and stable manner. He already has an appointment scheduled with his primary lead slot technician in 1 week from now. Vital Signs/Physical Exam: Temp Pulse Resp BP Pulse Ox 97.5 F 52 20 112/65 98 01/11/19 16:00 01/11/19 17:31 01/11/19 16:00 01/11/19 17:31 01/11/19 16:00 General: Alert, In no apparent distress, Oriented x3 HEENT: Atraumatic, PERRLA, EOMI Neck: Supple, JVD not distended Respiratory: Clear to auscultation bilaterally, Normal air movement Cardiovascular: Regular rate/rhythm, Normal S1 S2 Gastrointestinal: Normal bowel sounds, No tenderness Musculoskeletal: No tenderness Integumentary: No rashes Neurological: Normal speech, Normal tone, Normal affect Lymphatics: No axilla or inguinal lymphadenopathy Laboratory Data at Discharge: WBC 6.4 K/uL (4.3-10.9) D 01/11/19 04:29 Hgb 11.9 g/dL (13.6-17.9) L 01/11/19 04:29 Hct 34.3 % (39.6-49.0) L 01/11/19 04:29 Plt Count 151 K/uL (152-406) L 01/11/19 04:29 Sodium 141 mmol/L (136-145) 01/11/19 04:29 Potassium 4.3 mmol/L (3.5-5.1) 01/11/19 04:29 BUN 64 mg/dL (7-18) H 01/11/19 04:29 Creatinine 4.00 mg/dL (0.55-1.3) H 01/11/19 04:29 Glucose 90 mg/dL (74-106) 01/11/19 04:29 Phosphorus 4.2 mg/dL (2.5-4.9) 01/10/19 03:37 Magnesium 1.8 mg/dL (1.8-2.4) 01/10/19 03:37 Total Bilirubin 0.9 mg/dL (0.2-1.0) 01/11/19 04:29 AST 12 U/L (15-37) L 01/11/19 04:29 ALT 17 U/L (12-78) 01/11/19 04:29 Alkaline Phosphatase 102 U/L (45-117) 01/11/19 04:29 Troponin I 0.05 ng/mL (0.0-0.045) H 01/10/19 03:37 Home Medications: Vitamin B Complex [B Complex] 1 each PO DAILY 01/09/19 Amlodipine [Norvasc*] 10 mg PO DAILY #30 tab 01/11/19 Furosemide [Lasix] 40 mg PO DAILY #30 tab 01/11/19 Metoprolol Tartrate [Lopressor*] 50 mg PO BID #60 tab 01/11/19 New Medications: Amlodipine [Norvasc*] 10 mg PO DAILY #30 tab Furosemide [Lasix] 40 mg PO DAILY #30 tab Metoprolol Tartrate [Lopressor*] 50 mg PO BID #60 tab Patient Discharge Instructions: Please make sure to follow up with the lead slot technician as soon as you can. Please return to the emergency room for worsening symptoms Diet: Renal Activity: Ad clem Followup: Jessica Batres MD [ACTIVE - CAN ADMIT] - (kidney doctor- Call to schedule an appointment as soon as possible ) Shan Mckenzie MD [ACTIVE - CAN ADMIT] - 1-2 Weeks (heart doctor- Call to schedule an appointment ) Time spent managing pt's care (in minutes): 55
[2019-01-13 23:11] LABS: Albumin, (SPE) 3.5 g/dL (3.8-4.8); Alpha-1-Globulins 0.3 g/dL (0.2-0.3); Alpha-2-Globulins 0.7 g/dL (0.5-0.9); Gamma Globulins 0.9 g/dL (0.8-1.7); INTERPRETATION REPORT
== END 2019-01-11 18:54 | disposition home or self-care (01) | DRG 291 ==
LOC: ER 14:17 → ERHOLD 16:32 → 4TH 21:12
PROVIDERS: ADMIT Family Medicine; ATTEND Family Medicine
DX: I13.2 Hypertensive heart and chronic kidney disease with heart failure and with stage 5 chronic kidney disease, or end stage renal disease (principal); J96.01 Acute respiratory failure with hypoxia; N18.5 Chronic kidney disease, stage 5; I50.32 Chronic diastolic (congestive) heart failure; N17.9 Acute kidney failure, unspecified; E11.22 Type 2 diabetes mellitus with diabetic chronic kidney disease; D63.1 Anemia in chronic kidney disease; I25.10 Atherosclerotic heart disease of native coronary artery without angina pectoris; N40.0 Benign prostatic hyperplasia without lower urinary tract symptoms; R94.31 Abnormal electrocardiogram [ECG] [EKG]
CPT/HCPCS: 36415; 71045; 71046; 80048; 80053; 81003; 82570; 82962; 83735; 83880; 84100; 84156; 84165; 84484; 85025; 86334; 87040; 93005; 93306; 93975; 94660; 94760; 96365; 96366; 96375; 97110; 97112; 97116; 97161; 97530; 99285; J0360; J1940